=== PATIENT | male | born 1960 | race Caucasian/White ===

== ENCOUNTER 2016-07-06 17:40 | Inpatient (IN) | payer MEDICAID ==
[~2016-07-06] VITALS: Ht 167.6 cm; Wt 62.5 kg
[2016-07-06 17:51] VITALS: BP 103/65; PULSE 92; RESP 16; O2SAT 89
[2016-07-06 17:52] VITALS: TEMP 100.3; O2SAT 94
[2016-07-06] MEDS ORDERED: SODIUM CHLOR 0.9% 1000 ML INJ 100 ML IV ONE (18:32)
[2016-07-06] MEDS ORDERED: PIPERACIL-TAZO 4.5 GM PREMIX 100 ML IV STA (18:32)
[2016-07-06] MEDS ORDERED: SODIUM CHLOR 0.9% 1000 ML INJ 1,000 ML IV ONE ×2 (18:32)
[2016-07-06] MEDS ORDERED: AZITHROMYCIN INJ 500 MG in SODIUM CHLOR 0.9% 250 ML INJ 250 ML IV STA (18:32)
[2016-07-06] MEDS ORDERED: LORA-474 PO (18:37)
[2016-07-06] MEDS ORDERED: SERO100T PO (18:37)
[2016-07-06] MEDS ORDERED: DIVA125C PO ×2 (18:37)
[2016-07-06] MEDS ORDERED: ESCI20TA PO (18:37)
[2016-07-06] MEDS ORDERED: HYDR-3366 PO (18:37)
[2016-07-06] MEDS ORDERED: GABA300C5 PO (18:37)
[2016-07-06] MEDS ORDERED: MULT-135 PO (18:37)
[2016-07-06] MEDS ORDERED: IPRASOL INH (18:37)
[2016-07-06] MEDS ORDERED: PRED10 PO (18:37)
[2016-07-06] MEDS ORDERED: SENN8.6T19 PO (18:37)
[2016-07-06] MEDS ORDERED: LEVE500 PO (18:37)
[2016-07-06] MEDS ORDERED: CLON0.5T PO (18:37)
[2016-07-06] MEDS: RESP: ALBUTEROL 2.5 MG/IPRATROPIUM 0.5 MG NEB (SCH) INH (19:13)
[2016-07-06 19:16] LABS: AUTOMATED NEUTROPHIL # 13.4 TH/MM3 (1.8-7.7); EOSINOPHIL % 0.1 % (0.0-4.0); HEMATOCRIT 35.6 % (39.0-51.0); HEMO FLAGS DIFF FINAL; LYMPH % 13.2 % (9.0-44.0); LYMPHOCYTE # 2.3 TH/MM3 (1.0-4.8); MEAN CELL VOLUME 92.4 FL (80.0-100.0); MEAN CORPUSCULAR HEMOGLOBIN 30.5 PG (27.0-34.0); MONO % 9.4 % (0.0-8.0); NEUT % 77.3 % (16.0-70.0); PLATELET COUNT 144 TH/MM3 (150-450); RED BLOOD COUNT 3.86 MIL/MM3 (4.50-5.90); RED CELL DISTRIBUTION WIDTH 13.9 % (11.6-17.2); WHITE BLOOD COUNT 17.4 TH/MM3 (4.0-11.0)
[2016-07-06 19:23] LABS: APTT (PATIENT) 32.2 SEC (24.3-30.1); PROTHROMBIN TIME - PATIENT 11.3 SEC (9.8-11.6)
[2016-07-06 19:34] LABS: ANION GAP 8 MEQ/L (5-15); AST (GOT) 15 U/L (15-37); BICARBONATE 29.9 MEQ/L (21.0-32.0); BLOOD UREA NITROGEN 16 MG/DL (7-18); CHLORIDE 101 MEQ/L (98-107); GLOMERULAR FILTRATION RATE 73 ML/MIN (>89); POTASSIUM 4.9 MEQ/L (3.5-5.1); SODIUM (NA) 139 MEQ/L (136-145)
[2016-07-06 19:37] LABS: ALKALINE PHOSPHATASE 73 U/L (45-117); ALT (GPT) 19 U/L (12-78); TOTAL BILIRUBIN ADULT 0.4 MG/DL (0.2-1.0)
--- NOTE | 2016-07-06 19:39 | RADRPT ---
EXAM DATE/TIME: 07/06/2016 18:43 [place] COMPARISON: No previous studies available for comparison. INDICATIONS : Fever. MEDICAL HISTORY : Hepatitis C. SURGICAL HISTORY : None. ENCOUNTER: Initial ACUITY: 1 day PAIN SCORE: 0/10 LOCATION: Bilateral chest FINDINGS: The heart size is normal. The lungs demonstrate diffuse increased interstitial markings. There is fur ther increased density in the right perihilar region. Significant effusion is not seen. CONCLUSION: 1. Diffuse increased interstitial markings likely representing underlying edema. 2. Increased density at the right hilar region likely representing some focal consolidation. Baljit De Oliveira MD on July 06, 2016 at 19:30 Board Certified Radiologist. This report was verified electronically.
--- NOTE | 2016-07-06 20:13 | PD ---
HPI Chief Complaint: Respiratory Symptoms Time Seen by Provider: 20:02 Travel History International Travel<30 days: No Contact w/Intl Traveler<30days: No Traveled to known affect area: No History of Present Illness HPI 56-year-old male brought in from nursing facility with decreased level of alertness. X-ray from 211 showed a right lower lobe infiltrate, and this morning the patient woke up requiring 4 L a minute via nasal cannula to maintain O2 sats in the 90%. Breath sounds bilaterally showed coarse rhonchi and 101 temperature. History of sepsis in the past with leukocytosis, hepatitis C, COPD, and has been intubated 5 times in the past. History of aspiration pneumonia. Lane and Zosyn was ordered on June 22 per infectious disease, patient was discharged from [facility] on 17 June. Patient was transferred here for further evaluation and treatment. 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; with hemiplegia and hemiparesis) Hepatitis: Yes (C) Hypertension: Yes Neurologic: Yes (epilepsy) Influenza Vaccination: No (uto) Social History Alcohol Use: No (uto) Tobacco Use: No (uto) Substance Use: No Allergies-Medications (Allergen,Severity, Reaction): Coded Allergies: No Known Allergies (Unverified , 07/06/16) Reported Meds & Prescriptions Reported Meds & Active Scripts Active Reported Keppra (Levetiracetam) 500 Mg Tab 500 Mg PO BID Escitalopram (Escitalopram Oxalate) 20 Mg Tab 20 Mg PO DAILY Seroquel (Quetiapine Fumarate) 100 Mg Tab 100 Mg PO TID Gabapentin 300 Mg Cap 300 Mg PO TID [place] (Hydrocodone-Acetaminophen) 10-325 Mg Tab 1 Tab PO Q6H Ativan (Lorazepam) 1 Mg Tab 1 Mg PO Q6H PRN Senna-S 8.6-50 mg (Sennosides-Docusate Sodium) 1 Tab Tab 1 Tab PO BID Clonazepam 0.5 Mg Tab 0.5 Mg PO BID PRN Multi Vitamin (Multiple Vitamin) 1 Tab Tab 1 Tab PO DAILY Depakote Sprinkles (Divalproex Sodium) 125 mg Cap 3 Tab PO DAILY Depakote Sprinkles (Divalproex Sodium) 125 mg Cap 250 Mg PO BID Duoneb (Ipratropium-Albuterol Neb) 0.5-2.5 Mg/3 Ml Neb 1 Nebule INH Q4HR NEB PRN Prednisone 10 Mg Tab 10 Mg PO DAILY Review of Systems ROS Limitations: Clinical Condition, Altered Mental Status, Poor Historian Except as stated in HPI: all other systems reviewed are Neg General / Constitutional: Positive: Fever Eyes: No: Visual changes HENT: No: Headaches Cardiovascular: No: Chest Pain or Discomfort Respiratory: No: Shortness of Breath Gastrointestinal: No: Abdominal Pain Genitourinary: No: Dysuria Musculoskeletal: No: Pain Skin: No Rash Neurologic: No: Weakness Psychiatric: No: Depression Endocrine: No: Polydipsia Hematologic/Lymphatic: No: Easy Bruising Physical Exam Exam Limitations: Altered Mental Status, Poor Historian Narrative GENERAL: Patient appears in mild to moderate distress. He is somewhat obtunded but will answer questions yes or no. SKIN: Warm and dry. Moderate pallor. Mild poor turgor. HEAD: Atraumatic. Normocephalic. EYES: Pupils equal and round. No scleral icterus. No injection or drainage. ENT: No nasal bleeding or discharge. Mucous membranes pink and dry. Pharynx is clear. NECK: Trachea midline. No JVD. CARDIOVASCULAR: Regular rate and rhythm. No murmurs gallops or rubs appreciated. RESPIRATORY: No accessory muscle use. Patient has generalized rhonchi and rales bilaterally to auscultation. Breath sounds equal bilaterally. GASTROINTESTINAL: Abdomen soft, non-tender, nondistended. Hepatic and splenic margins not palpable. MUSCULOSKELETAL: Extremities without clubbing, cyanosis, or edema. No obvious deformities. NEUROLOGICAL: Awake and alert. No obvious cranial nerve deficits. Motor grossly within normal limits. Five out of 5 muscle strength in the arms and legs. PSYCHIATRIC: Difficult to assess due to the patient's condition. Data Data Last Documented VS Vital Signs Date Time Temp Pulse Resp B/P Pulse Ox O2 Delivery O2 Flow Rate FiO2 07/06/16 17:52 100.3 94 Nasal Cannula 3.5 07/06/16 17:51 92 16 103/65 Orders Electrocardiogram (07/06/16 18:32) Complete Blood Count With Diff (07/06/16 18:32) Comprehensive Metabolic Panel (07/06/16 18:32) Prothrombin Time / Inr (Pt) (07/06/16 18:32) Act Partial Throm Time (Ptt) (07/06/16 18:32) Lactic Acid Sepsis Protocol (07/06/16 18:32) Urinalysis - C+S If Indicated (07/06/16 18:32) Influenzae A/B Antigen (07/06/16 18:32) Blood Culture (07/06/16 18:32) Sputum Culture And Gram Stain (07/06/16 18:32) Chest, Single Ap (07/06/16 18:32) Blood Glucose (07/06/16 18:32) Ecg Monitoring (07/06/16 18:32) Iv Access Insert/Monitor (07/06/16 18:32) Oximetry (07/06/16 18:32) Oxygen Administration (07/06/16 18:32) Piperacil-Tazo 4.5 Gm Premix (Zosyn 4.5 (07/06/16 18:32) Azithromycin Inj (Zithromax Inj) (07/06/16 18:32) Sodium Chlor 0.9% 1000 Ml Inj (Ns 1000 M (07/06/16 18:32) Sodium Chlor 0.9% 1000 Ml Inj (Ns 1000 M (07/06/16 18:32) Sodium Chlor 0.9% 1000 Ml Inj (Ns 1000 M (07/06/16 18:32) Albuterol-Ipratropium Neb (Duoneb Neb) (07/06/16 18:45) B-Type Natriuretic Peptide (07/06/16 19:53) Labs Laboratory Tests Test 07/06/16 07/06/16 18:35 18:43 White Blood Count 17.4 TH/MM3 Red Blood Count 3.86 MIL/MM3 Hemoglobin 11.7 GM/DL Hematocrit 35.6 % Mean Corpuscular Volume 92.4 FL Mean Corpuscular Hemoglobin 30.5 PG Mean Corpuscular Hemoglobin 33.0 % Concent Red Cell Distribution Width 13.9 % Platelet Count 144 TH/MM3 Mean Platelet Volume 7.3 FL Neutrophils (%) (Auto) 77.3 % Lymphocytes (%) (Auto) 13.2 % Monocytes (%) (Auto) 9.4 % Eosinophils (%) (Auto) 0.1 % Basophils (%) (Auto) 0.0 % Neutrophils # (Auto) 13.4 TH/MM3 Lymphocytes # (Auto) 2.3 TH/MM3 Monocytes # (Auto) 1.6 TH/MM3 Eosinophils # (Auto) 0.0 TH/MM3 Basophils # (Auto) 0.0 TH/MM3 CBC Comment DIFF FINAL Differential Comment Sodium Level 139 MEQ/L Potassium Level 4.9 MEQ/L Chloride Level 101 MEQ/L Carbon Dioxide Level 29.9 MEQ/L Anion Gap 8 MEQ/L Blood Urea Nitrogen 16 MG/DL Creatinine 1.05 MG/DL Estimat Glomerular Filtration 73 ML/MIN Rate Random Glucose 203 MG/DL Calcium Level 8.3 MG/DL Total Bilirubin 0.4 MG/DL Aspartate Amino Transf 15 U/L (AST/SGOT) Alanine Aminotransferase 19 U/L (ALT/SGPT) Alkaline Phosphatase 73 U/L Total Protein 7.5 GM/DL Albumin 2.6 GM/DL Prothrombin Time 11.3 SEC Prothromb Time International 1.0 RATIO Ratio Activated Partial 32.2 SEC Thromboplast Time Lactic Acid Level 2.3 mmol/L MDM Medical Decision Making Medical Screen Exam Complete: Yes Emergency Medical Condition: Yes Differential Diagnosis Sepsis. Hypoxemia. Pneumonia. Narrative Course Patient is felt to be ill with early sepsis. Labs ordered including CBC, CMP, lactic acid, blood cultures 2, and urinalysis. Chest x-ray is ordered. Chest x-ray shows right middle and lower lobe infiltrate consistent with aspiration pneumonia per radiologist. IV access is obtained patient is given Zosyn and azithromycin IV per sepsis protocol. Patient is given DuoNeb 3 every 15 minutes, and rapid influenza A+B and sputum culture is ordered if able to obtain. Patient is started on 3 L of normal saline IV. CBC shows leukocytosis of 17.4 with a right shift. CMP is fairly unremarkable with a random glucose of 203, normal BUN/creatinine, and BUN of 2.6. Calcium was slightly low at 8.3. Lactic acid is elevated at 2.3. PT/INR normal. APTT is elevated at 32.2. Urinalysis is still pending. Call was placed to Dr. Khalil, and the patient was discussed and accepted for admission. Sepsis Criteria SIRS Criteria (2 or more): Temp > 100.9 or < 96.8, Heart rate over 90, RR > 20 or PaCO2 < 32, WBC > 83504, < 4000 or > 10% bands Sepsis Criteria (SIRS+source): Infect source susp/known Severe Sepsis (+one): Lactate >2 Criteria Outcome: Meets severe sepsis criteria Diagnosis Primary Impression: Sepsis Qualified Code: A41.9 - Sepsis, due to unspecified organism Additional Impressions: Pneumonia Qualified Code: J18.1 - Pneumonia of lower lobe due to infectious organism, unspecified laterality Hypoxia Admitting Information Admitting Physician Requests: Admit Condition: Stable Cristiano Gonzalez Jul 06, 2016 20:13
--- NOTE | 2016-07-06 20:18 | PD ---
Physical Exam Date Seen by Provider: Jul 06, 2016 Narrative Patient was sent to us from [facility] for probable pneumonia and hypoxia. Data Data Last Documented VS Vital Signs Date Time Temp Pulse Resp B/P Pulse Ox O2 Delivery O2 Flow Rate FiO2 07/06/16 17:52 100.3 94 Nasal Cannula 3.5 07/06/16 17:51 92 16 103/65 Orders Electrocardiogram (07/06/16 18:32) Complete Blood Count With Diff (07/06/16 18:32) Comprehensive Metabolic Panel (07/06/16 18:32) Prothrombin Time / Inr (Pt) (07/06/16 18:32) Act Partial Throm Time (Ptt) (07/06/16 18:32) Lactic Acid Sepsis Protocol (07/06/16 18:32) Urinalysis - C+S If Indicated (07/06/16 18:32) Influenzae A/B Antigen (07/06/16 18:32) Blood Culture (07/06/16 18:32) Sputum Culture And Gram Stain (07/06/16 18:32) Chest, Single Ap (07/06/16 18:32) Blood Glucose (07/06/16 18:32) Ecg Monitoring (07/06/16 18:32) Iv Access Insert/Monitor (07/06/16 18:32) Oximetry (07/06/16 18:32) Oxygen Administration (07/06/16 18:32) Piperacil-Tazo 4.5 Gm Premix (Zosyn 4.5 (07/06/16 18:32) Azithromycin Inj (Zithromax Inj) (07/06/16 18:32) Sodium Chlor 0.9% 1000 Ml Inj (Ns 1000 M (07/06/16 18:32) Sodium Chlor 0.9% 1000 Ml Inj (Ns 1000 M (07/06/16 18:32) Sodium Chlor 0.9% 1000 Ml Inj (Ns 1000 M (07/06/16 18:32) Albuterol-Ipratropium Neb (Duoneb Neb) (07/06/16 18:45) B-Type Natriuretic Peptide (07/06/16 19:53) Labs Laboratory Tests Test 07/06/16 2 18:35 18:43 White Blood Count 17.4 TH/MM3 Red Blood Count 3.86 MIL/MM3 Hemoglobin 11.7 GM/DL Hematocrit 35.6 % Mean Corpuscular Volume 92.4 FL Mean Corpuscular Hemoglobin 30.5 PG Mean Corpuscular Hemoglobin 33.0 % Concent Red Cell Distribution Width 13.9 % Platelet Count 144 TH/MM3 Mean Platelet Volume 7.3 FL Neutrophils (%) (Auto) 77.3 % Lymphocytes (%) (Auto) 13.2 % Monocytes (%) (Auto) 9.4 % Eosinophils (%) (Auto) 0.1 % Basophils (%) (Auto) 0.0 % Neutrophils # (Auto) 13.4 TH/MM3 Lymphocytes # (Auto) 2.3 TH/MM3 Monocytes # (Auto) 1.6 TH/MM3 Eosinophils # (Auto) 0.0 TH/MM3 Basophils # (Auto) 0.0 TH/MM3 CBC Comment DIFF FINAL Differential Comment Sodium Level 139 MEQ/L Potassium Level 4.9 MEQ/L Chloride Level 101 MEQ/L Carbon Dioxide Level 29.9 MEQ/L Anion Gap 8 MEQ/L Blood Urea Nitrogen 16 MG/DL Creatinine 1.05 MG/DL Estimat Glomerular Filtration 73 ML/MIN Rate Random Glucose 203 MG/DL Calcium Level 8.3 MG/DL Total Bilirubin 0.4 MG/DL Aspartate Amino Transf 15 U/L (AST/SGOT) Alanine Aminotransferase 19 U/L (ALT/SGPT) Alkaline Phosphatase 73 U/L Total Protein 7.5 GM/DL Albumin 2.6 GM/DL Prothrombin Time 11.3 SEC Prothromb Time International 1.0 RATIO Ratio Activated Partial 32.2 SEC Thromboplast Time Lactic Acid Level 2.3 mmol/L MDM Supervised Visit with SANJUANA: Yes Narrative Course I, Dr. Crowe, have reviewed the advance practice practitioner's documentation and am in agreement, met with the patient face to face, made the diagnosis, and the medical decision making was done by me. *My assessment and Findings: Sats are 91% on oxygen. Lungs have diffuse rhonchi worse on the right than the left. Sierra Crowe MD Jul 06, 2016 20:18
[2016-07-06] MEDS ORDERED: ACETAMINOPHEN/HYDROcodone 325 MG/5 MG TAB PO PRN (20:30)
[2016-07-06] MEDS ORDERED: BISACODYL 10 MG SUPP PR PRN (20:30)
[2016-07-06] MEDS ORDERED: ONDANSETRON HCL 4 MG/2 ML VIAL IVP PRN (20:30)
[2016-07-06] MEDS ORDERED: DEXTROSE 50% IN WATER 50 ML VIAL(D50) IV PUSH PRN (20:30)
[2016-07-06] MEDS ORDERED: SODIUM CHLORIDE 0.9% FLUSH 5 ML FLUSH FLUSH PRN (20:30)
[2016-07-06] MEDS ORDERED: RESP: ALBUTEROL 2.5 MG/IPRATROPIUM 0.5 MG NEB (PRN) NEB (20:30)
[2016-07-06] MEDS ORDERED: GLUCAGON 1 MG/ML VIAL OTHER PRN (20:30)
[2016-07-06] MEDS ORDERED: Vancomycin Consult Pharmacy 1 EA OTHER SCH (20:30)
[2016-07-06] MEDS ORDERED: ACETAMINOPHEN/HYDROcodone 325 MG/10 MG TAB PO PRN (20:30)
[2016-07-06] MEDS ORDERED: ACETAMINOPHEN 325 MG TAB PO PRN (20:30)
--- NOTE | 2016-07-06 20:32 | HHI.HP ---
[facility] Service [place] [facility] Primary Care Physician Non-Staff Admission Diagnosis Sepsis/Pneumonia/Hypoxia Diagnoses: (1) Sepsis Diagnosis: Principal (2) PNA (pneumonia) Diagnosis: Principal (3) Hypoxia Diagnosis: Principal (4) Seizure disorder Diagnosis: Principal (5) DM (diabetes mellitus) Diagnosis: Principal Travel History International Travel<30 Days: No Contact w/Intl Traveler <30 Da: No Traveled to Known Affected Are: No History of Present Illness This is a 56-year-old male with PMH of Anxiety, COPD, Hepatitis C, Cirrhosis, Seizure Disorder, h/o ICH and CVA w/ Residual Hemiparesis who was sent to the ER from SNF secondary to PNA and Hypoxia. Per records, outpatient X-ray from 04/06 showing RLL infiltrate, today w/ hypoxia O2 sat 90% on RA and temp 101. Pt unable to provide history. On arrival, BP 103/65, HR 92, O2 sat 89% on RA, Temp 100.3. WBC 17.4. Platelets 144, no previous labs for comparison. Chemistry essentially unremarkable. BS 203. Lactic Acid 2.3, repeat 2.3. CXR with diffuse interstitial markings likely representing edema, increased density right hilar region representing focal consolidation. S/p Sputum/Blood Cultures , Zosyn/Zithro in ER. Review of Systems ROS: Unable to obtain secondary to CVA, brain injury Past Family Social History Past Medical History PMH: Anxiety, COPD, Hepatitis C, Cirrhosis, Seizure Disorder, h/o ICH and CVA w / Residual Hemiparesis Past Surgical History PAST SURGICAL HISTORY: None Allergies: Coded Allergies: No Known Allergies (Unverified , 07/06/16) Family History PAST FAMILY HISTORY: Reviewed. No h/o DM or CAD Social History PAST SOCIAL HISTORY: Negative for all,, tobacco or drugs. Physical Exam Vital Signs Vital Signs Date Time Temp Pulse Resp B/P Pulse Ox O2 Delivery O2 Flow Rate FiO2 07/06/16 17:52 100.3 94 Nasal Cannula 3.5 07/06/16 17:51 92 16 103/65 89 Room Air Physical Exam PE: GENERAL: Thin, frail, chronically ill-appearing white male in no acute distress. HEENT: PERRLA, EOMI. No scleral icterus or conjunctival pallor. No lid lag or facial droop. CARDIOVASCULAR: Regular rate and rhythm. No obvious murmurs to auscultation. No chest tenderness to palpation. RESPIRATORY: No obvious rhonchi or wheezing. Clear to auscultation. Breath sounds decreased at bases bilaterally. GASTROINTESTINAL: Abdomen soft, non-tender, nondistended. BS normal. MUSCULOSKELETAL: Extremities without clubbing, cyanosis, or edema. No obvious deformities. NEUROLOGICAL: Awake, alert. Mental status seemingly at baseline. No new focal neurologic deficits. Moving both upper and lower extremities spontaneously. Laboratory Laboratory Tests Test 07/06/16 07/06/16 18:35 18:43 White Blood Count 17.4 Red Blood Count 3.86 Hemoglobin 11.7 Hematocrit 35.6 Mean Corpuscular Volume 92.4 Mean Corpuscular Hemoglobin 30.5 Mean Corpuscular Hemoglobin 33.0 Concent Red Cell Distribution Width 13.9 Platelet Count 144 Mean Platelet Volume 7.3 Neutrophils (%) (Auto) 77.3 Lymphocytes (%) (Auto) 13.2 Monocytes (%) (Auto) 9.4 Eosinophils (%) (Auto) 0.1 Basophils (%) (Auto) 0.0 Neutrophils # (Auto) 13.4 Lymphocytes # (Auto) 2.3 Monocytes # (Auto) 1.6 Eosinophils # (Auto) 0.0 Basophils # (Auto) 0.0 CBC Comment DIFF FINAL Differential Comment Sodium Level 139 Potassium Level 4.9 Chloride Level 101 Carbon Dioxide Level 29.9 Anion Gap 8 Blood Urea Nitrogen 16 Creatinine 1.05 Estimat Glomerular Filtration 73 Rate Random Glucose 203 Calcium Level 8.3 Total Bilirubin 0.4 Aspartate Amino Transf 15 (AST/SGOT) Alanine Aminotransferase 19 (ALT/SGPT) Alkaline Phosphatase 73 Total Protein 7.5 Albumin 2.6 Prothrombin Time 11.3 Prothromb Time International 1.0 Ratio Activated Partial 32.2 Thromboplast Time Lactic Acid Level 2.3 Date/Time Procedure Status Source Growth 07/06/16 18:43 Aerobic Blood Culture Received Blood Peripheral Pending 07/06/16 18:43 Anaerobic Blood Culture Received Blood Peripheral Pending 07/06/16 18:40 Influenza Types A,B Antigen (HIRAM) - Final Complete Nasal Washing NEGATIVE FOR FLU A AND B ANTIGEN.... Result Diagram: 07/06/16183407/06/161834 Assessment and Plan Problem List: (1) Sepsis ICD Code: A41.9 Status: Acute (2) PNA (pneumonia) ICD Code: J18.9 Status: Acute (3) Hypoxia ICD Code: R09.02 Status: Acute (4) Seizure disorder ICD Code: G40.909 Status: Acute (5) DM (diabetes mellitus) ICD Code: E11.9 Status: Acute Assessment and Plan A/P: 1. Sepsis: Temp 100.3, HR 92, WBC 17.4, Lactic Acid 2.3. S/p Blood/Sputum Cultures, IV Zithro/Zosyn. Follow up cultures, continue w/ IV Vanc/Zosyn. IVF for hydration, repeat Lactic Acid. 2. PNA: CXR w/ diffuse increased interstitial markings likely representing edema and increased density right hilar region representing focal consolidation , images reviewed by me. Continue with treatment as above. DuoNeb prn, Mucinx 3. Hypoxia: Not on Home O2, O2 sat 89% on RA, currently 94% on 3L NC, continue w/ O2 as needed. 4. Seizure Disorder: Stable. H/o ICH and CVA w/ residual hemiparesis, unchanged. Resume home medications. 5. DM: Sliding scale w/ Accu-Cheks. 6. DVT Prophylaxis: SCD/Teds, no anticoagulation w/ h/o ICH 7. Social work for d/c planning as needed. 8. Case discussed w/ ER physician at length. Physician Certification 2 Midnight Certification Type: Admission for Inpatient Services Order for Inpatient Services The services are ordered in accordance with Medicare regulations or non- Medicare payer requirements, as applicable. In the case of services not specified as inpatient-only, they are appropriately provided as inpatient services in accordance with the 2-midnight benchmark. Estimated LOS (days): 2 days is the estimated time the patient will need to remain in the hospital, assuming treatment plan goals are met and no additional complications. Post-Hospital Plan: Not yet determined Problem Qualifiers (1) Sepsis: Qualified Code: A41.9 - Sepsis, due to unspecified organism Ciarra Grey MD Jul 06, 2016 20:32
[2016-07-06 20:56] LABS: LACTIC ACID GHOST NOT REPORTABLE
[2016-07-06 21:00] VITALS: BP 119/82; PULSE 90; RESP 20; O2SAT 94
[2016-07-06] MEDS: SODIUM CHLORIDE 0.9% FLUSH 5 ML FLUSH FLUSH SCH (21:00)
[2016-07-06 22:19] VITALS: O2SAT 95
[2016-07-06] MEDS: levETIRAcetam 500 MG TAB PO SCH (22:52)
[2016-07-06] MEDS: guaiFENesin E.R. 600 MG TAB PO SCH (22:52)
[2016-07-06] MEDS: DOCUSATE SODIUM 50 MG/SENNA 8.6 MG TAB PO SCH (22:53)
[2016-07-06] MEDS: SODIUM CHLOR 0.9% 1000 ML INJ 1,000 ML IV SCH (22:54)
[2016-07-06] MEDS: INSULIN ASPART SUPPLEMENTAL SCALE SQ SCH (22:59)
[2016-07-06 23:07] VITALS: BP 119/72; PULSE 90; RESP 20; O2SAT 96
[2016-07-06] MEDS: DIVALPROEX SODIUM SPRINKLES 125 MG CAP PO SCH (23:21)
[2016-07-06] MEDS: VANCOMYCIN INJ 1,700 MG in SODIUM CHLORID 0.9% 500 ML INJ 500 ML IV SCH (23:49)
[2016-07-07] VITALS (9 sets, daily range): BP systolic 135–186; BP diastolic 80–97; PULSE 70–93; RESP 16–25; TEMP 97.7–98.5; O2SAT 93–100
[2016-07-07 00:01] LABS: BLOOD, URINE NEG (NEG); COMMENT (UR) CULT NOT INDICATED; CULTURE IF INDICATED CULT NOT INDICATED; GLUCOSE,URINE NEG (NEG); HYALINE CAST, URINE 15 /lpf (RARE); KETONE, URINE NEG (NEG); NITRITE,URINE NEG (NEG); PH, URINE 6.5 (5.0-8.5); URINE COLOR YELLOW (YELLW/STRAW)
[2016-07-07] MEDS: PIPERACIL-TAZO 3.375 GM PREMIX 50 ML IV SCH ×4 (03:04→22:03)
[2016-07-07 05:32] LABS: ALT (GPT) 17 U/L (12-78); ANION GAP 6 MEQ/L (5-15); AST (GOT) 13 U/L (15-37); BICARBONATE 27.2 MEQ/L (21.0-32.0); CHLORIDE 109 MEQ/L (98-107); GLOMERULAR FILTRATION RATE 122 ML/MIN (>89); POTASSIUM 4.6 MEQ/L (3.5-5.1); SODIUM (NA) 142 MEQ/L (136-145)
[2016-07-07 05:34] LABS: ALKALINE PHOSPHATASE 58 U/L (45-117); BLOOD UREA NITROGEN 13 MG/DL (7-18); TOTAL BILIRUBIN ADULT 0.5 MG/DL (0.2-1.0)
[2016-07-07 05:45] LABS: AUTOMATED NEUTROPHIL # 6.6 TH/MM3 (1.8-7.7); BASOPHIL % 0.2 % (0.0-2.0); EOSINOPHIL % 0.3 % (0.0-4.0); LYMPH % 26.8 % (9.0-44.0); MEAN CELL VOLUME 91.7 FL (80.0-100.0); MEAN CORPUSCULAR HEMOGLOBIN 30.8 PG (27.0-34.0); MEAN CORPUSCULAR HGB CONC 33.6 % (32.0-36.0); MONO % 13.1 % (0.0-8.0); NEUT % 59.6 % (16.0-70.0); PLATELET COUNT 99 TH/MM3 (150-450); RED BLOOD COUNT 3.82 MIL/MM3 (4.50-5.90); RED CELL DISTRIBUTION WIDTH 14.1 % (11.6-17.2); WHITE BLOOD COUNT 11.1 TH/MM3 (4.0-11.0)
[2016-07-07 05:47] LABS: HEMO FLAGS AUTO DIFF
[2016-07-07] MEDS: INSULIN ASPART SUPPLEMENTAL SCALE SQ SCH ×4 (07:00→21:00)
[2016-07-07 08:37] LABS: PLATELET ESTIMATE SMEAR LOW (NORMAL); PLATELET MORPHOLOGY NORMAL (NORMAL); SCAN/DIFF AUTO DIFF CONFIRMED
[2016-07-07] MEDS: guaiFENesin E.R. 600 MG TAB PO SCH ×2 (08:48→21:57)
[2016-07-07] MEDS: GABAPENTIN 300 MG CAP PO SCH ×3 (08:48→17:22)
[2016-07-07] MEDS: ESCITALOPRAM OXALATE 20 MG TAB PO SCH (08:48)
[2016-07-07] MEDS: DIVALPROEX SODIUM SPRINKLES 125 MG CAP PO SCH ×2 (08:48→22:04)
[2016-07-07] MEDS: QUEtiapine FUMARATE 100 MG TAB PO SCH ×3 (08:48→17:22)
[2016-07-07] MEDS: levETIRAcetam 500 MG TAB PO SCH ×2 (08:48→21:57)
[2016-07-07] MEDS: MULTIVITAMIN TAB PO SCH (08:48)
[2016-07-07] MEDS: DOCUSATE SODIUM 50 MG/SENNA 8.6 MG TAB PO SCH ×2 (08:48→21:57)
[2016-07-07] MEDS: SODIUM CHLORIDE 0.9% FLUSH 5 ML FLUSH FLUSH SCH ×2 (09:00→21:00)
[2016-07-07] MEDS: SODIUM CHLOR 0.9% 1000 ML INJ 1,000 ML IV SCH ×2 (11:01→16:30)
[2016-07-07] MEDS: VANCOMYCIN INJ 1,700 MG in SODIUM CHLORID 0.9% 500 ML INJ 500 ML IV SCH ×2 (11:01→22:05)
[2016-07-07] MEDS: clonazePAM 0.5 MG TAB PO PRN (11:40)
--- NOTE | 2016-07-07 16:30 | HHI.PR ---
Subjective Remarks patient baseline, not ff commands stated his name and answered some questions childlike Objective Vitals Vital Signs Date Time Temp Pulse Resp B/P Pulse Ox O2 Delivery O2 Flow Rate FiO2 07/07/16 13:00 70 158/97 97 Nasal Cannula 4 07/07/16 12:30 96 4 07/07/16 12:25 98.5 93 25 166/83 96 Nasal Cannula 4 07/07/16 11:12 89 18 135/81 99 Nasal Cannula 4 07/07/16 08:00 87 18 143/83 95 Nasal Cannula 3 07/07/16 06:45 76 16 141/80 100 Simple Mask 7 07/07/16 03:00 71 20 140/87 98 Venturi Mask 6 07/06/16 23:07 95 Venturi Mask 40 07/06/16 23:07 90 20 119/72 96 Venturi Mask 6 40 07/06/16 22:20 95 Venturi Mask 6 50 07/06/16 22:19 95 Venturi Mask 6.00 50 07/06/16 21:00 90 20 119/82 94 07/06/16 17:52 100.3 94 Nasal Cannula 3.5 07/06/16 17:51 92 16 103/65 89 Room Air I/O 07/06/16 07/06/16 07/06/16 07/07/16 07/07/16 07/07/16 07:00 15:00 23:00 07:00 15:00 23:00 Output Total 250 ml Balance -250 ml Output Urine Total 250 ml # Voids 1 # Bowel Movements 1 Result Diagram: 07/07/16 0453 07/07/16 0453 Imaging Last Impressions Chest X-Ray 07/06/16 1832 Signed Impressions: Service Date/Time: June 18:43 - CONCLUSION: 1. Diffuse increased interstitial markings likely representing underlying edema. 2. Increased density at the right hilar region likely representing some focal consolidation. Baljit De Oliveira MD Objective Remarks awake and aelrt, oriented to person, childlike no nuchal rigidity lungs no rales regular rhythm abdmen soft, nontender extremities moves all spontaenously, no purposeful movement A/P Problem List: (1) Sepsis ICD Code: A41.9 Status: Acute (2) PNA (pneumonia) ICD Code: J18.9 Status: Acute (3) Hypoxia ICD Code: R09.02 Status: Acute (4) Seizure disorder ICD Code: G40.909 Status: Acute (5) DM (diabetes mellitus) ICD Code: E11.9 Status: Acute Assessment and Plan 1. Sepsis: Temp 100.3, HR 92, WBC 17.4, Lactic Acid 2.3. S/p Blood/Sputum Cultures, IV Zithro/Zosyn. Follow up cultures, continue w/ IV Vanc/Zosyn. IVF for hydration, repeat Lactic Acid. - normal 2. PNA: CXR w/ diffuse increased interstitial markings likely representing edema and increased density right hilar region representing focal consolidation , images reviewed by me. Continue with treatment as above. DuoNeb prn, Mucinx 3. Hypoxia: Not on Home O2, O2 sat 89% on RA, currently 94% on 3L NC, continue w/ O2 as needed. 4. S/P CVA history with encephalopathy Seizure Disorder: Stable. H/o ICH and CVA w/ residual hemiparesis, unchanged. Resume home medications. get speech for swallowing and cognitive evaluation. PT consult 5. DM: Sliding scale w/ Accu-Cheks. 6. DVT Prophylaxis: SCD/Teds, no anticoagulation w/ h/o ICH 7. Social work for d/c planning as needed. 8. Case discussed w/ ER physician at length. speech therapy consult for swallowing eval Problem Qualifiers (1) Sepsis: Qualified Code: A41.9 - Sepsis, due to unspecified organism Jess Austin MD Jul 07, 2016 16:30
--- NOTE | 2016-07-07 16:43 | EKG ---
Date Performed: 07/06/2016 Time Performed: 20:26:02 PTAGE: 56 years EKG: Sinus rhythm NORMAL ECG NO PREVIOUS TRACING DOCTOR: Larry Hatch Interpretating Date/Time 07/07/2016 16:41:39
[2016-07-08] VITALS (8 sets, daily range): BP systolic 107–175; BP diastolic 71–98; PULSE 69–89; RESP 16–20; TEMP 97.6–98.7; O2SAT 90–95
[2016-07-08] MEDS: SODIUM CHLOR 0.9% 1000 ML INJ 1,000 ML IV SCH (03:50)
[2016-07-08] MEDS: PIPERACIL-TAZO 3.375 GM PREMIX 50 ML IV SCH ×4 (03:50→21:18)
[2016-07-08] MEDS: INSULIN ASPART SUPPLEMENTAL SCALE SQ SCH ×4 (06:23→21:00)
[2016-07-08] MEDS: QUEtiapine FUMARATE 100 MG TAB PO SCH ×3 (08:08→16:35)
[2016-07-08] MEDS: guaiFENesin E.R. 600 MG TAB PO SCH ×2 (08:09→22:18)
[2016-07-08] MEDS: levETIRAcetam 500 MG TAB PO SCH ×2 (08:09→22:18)
[2016-07-08] MEDS: MULTIVITAMIN TAB PO SCH (08:09)
[2016-07-08] MEDS: GABAPENTIN 300 MG CAP PO SCH ×3 (08:09→16:35)
[2016-07-08] MEDS: ESCITALOPRAM OXALATE 20 MG TAB PO SCH (08:09)
[2016-07-08] MEDS: DOCUSATE SODIUM 50 MG/SENNA 8.6 MG TAB PO SCH ×2 (08:09→21:00)
[2016-07-08] MEDS: DIVALPROEX SODIUM SPRINKLES 125 MG CAP PO SCH ×2 (08:11→22:18)
[2016-07-08] MEDS: SODIUM CHLORIDE 0.9% FLUSH 5 ML FLUSH FLUSH SCH ×2 (09:00→21:18)
[2016-07-08] MEDS ORDERED: PHARMACY ORDERED LAB XX ONE (09:45)
--- NOTE | 2016-07-08 10:39 | HHI.PR ---
Subjective Remarks awake and alert, oriented to person ff all commands "I'm tied up, can you take these off" he is pleasant denies any pain Objective Vitals Vital Signs Date Time Temp Pulse Resp B/P Pulse Ox O2 Delivery O2 Flow Rate FiO2 07/08/16 08:00 98.6 70 18 175/98 90 07/08/16 04:00 98.0 86 16 116/77 92 07/08/16 00:00 98.5 81 18 144/88 95 07/07/16 22:05 86 07/07/16 20:00 98.5 76 17 139/84 93 07/07/16 15:00 97.7 82 20 186/82 95 07/07/16 13:00 70 158/97 97 Nasal Cannula 4 07/07/16 12:30 96 4 07/07/16 12:25 98.5 93 25 166/83 96 Nasal Cannula 4 07/07/16 11:12 89 18 135/81 99 Nasal Cannula 4 I/O 07/07/16 07/07/16 07/07/16 07/08/16 07/08/16 07/08/16 07:00 15:00 23:00 07:00 15:00 23:00 Intake Total 260 ml 120 ml 1474 ml Output Total 250 ml 400 ml Balance -250 ml 260 ml -280 ml 1474 ml Intake Oral 60 ml 120 ml IV Total 200 ml 1474 ml Output Urine Total 250 ml 400 ml # Voids 1 2 # Bowel Movements 1 Result Diagram: 07/07/16 0453 07/07/16 0453 Imaging Last Impressions Chest X-Ray 07/06/16 1832 Signed Impressions: Service Date/Time: June 18:43 - CONCLUSION: 1. Diffuse increased interstitial markings likely representing underlying edema. 2. Increased density at the right hilar region likely representing some focal consolidation. Baljit De Oliveira MD Objective Remarks awake and alert, oriented to person, speech soft no nuchal rigidity lungs no rales regular rhythm abdomen soft, nontender condom catheter in place extremities moves all spontaneously no purposeful movement A/P Problem List: (1) Sepsis ICD Code: A41.9 Status: Acute (2) PNA (pneumonia) ICD Code: J18.9 Status: Acute (3) Hypoxia ICD Code: R09.02 Status: Acute (4) Seizure disorder ICD Code: G40.909 Status: Acute (5) DM (diabetes mellitus) ICD Code: E11.9 Status: Acute Assessment and Plan 56 years old male [facility] Sepsis: Temp 100.3, HR 92, WBC 17.4, Lactic Acid 2.3. S/p Blood/Sputum Cultures, IV Zithro/Zosyn. Follow up cultures, continue w/ IV Vanc/Zosyn. IVF for hydration, repeat Lactic Acid. - normal. T down. WBC down PNA: CXR w/ diffuse increased interstitial markings likely representing edema and increased density right hilar region representing focal consolidation, Hypoxia: Not on Home O2, O2 sat 89% on RA, currently 94% on 3L NC, continue w/ O2 as needed. Hypertension- some elevated readings give Lasix 20 mg IV x 1. KCL x 1 DC IVF S/P CVA history with encephalopathy Seizure Disorder: Stable. H/o ICH and CVA w/ residual hemiparesis, unchanged. Resume home medications. get speech for swallowing and cognitive evaluation. PT consult DM: Sliding scale w/ Accu-Cheks. DVT Prophylaxis: SCD/Teds, no anticoagulation w/ h/o ICH ? Vascular dementia- Acute agitation- on multiple meds with underlying CVA on multiple meds- Lexapro, Seroquel psychiatry consult for recommendations Felicia SKY prn for agitation speech therapy consult for swallowing eval Problem Qualifiers (1) Sepsis: Qualified Code: A41.9 - Sepsis, due to unspecified organism Jess Austin MD Jul 08, 2016 10:39
[2016-07-08] MEDS ORDERED: POTASSIUM CHLORIDE 20 MEQ CONTROLLED RELEASE TAB PO ONE (10:45)
[2016-07-08] MEDS ORDERED: FUROSEMIDE 20 MG/2 ML VIAL IV PUSH ONE (10:45)
[2016-07-08] MEDS ORDERED: FUROSEMIDE 20 MG/2 ML VIAL IV PUSH SCH (10:45)
[2016-07-08] MEDS ORDERED: POTASSIUM CHLORIDE 20 MEQ CONTROLLED RELEASE TAB PO SCH (10:45)
[2016-07-08] MEDS: VANCOMYCIN INJ 1,700 MG in SODIUM CHLORID 0.9% 500 ML INJ 500 ML IV SCH (12:22)
[2016-07-08] MEDS: ZIPRASIDONE MESYLATE 20 MG VIAL IM PRN (17:44)
[2016-07-08] MEDS: clonazePAM 0.5 MG TAB PO PRN (22:18)
[2016-07-09] VITALS (7 sets, daily range): BP systolic 105–161; BP diastolic 60–91; PULSE 70–82; RESP 16–18; TEMP 97.8–99.4; O2SAT 92–96
[2016-07-09] MEDS: PIPERACIL-TAZO 3.375 GM PREMIX 50 ML IV SCH ×4 (02:25→21:02)
[2016-07-09] MEDS: INSULIN ASPART SUPPLEMENTAL SCALE SQ SCH ×4 (06:07→21:00)
[2016-07-09] MEDS: DIVALPROEX SODIUM SPRINKLES 125 MG CAP PO SCH ×2 (08:37→21:02)
[2016-07-09] MEDS: ESCITALOPRAM OXALATE 20 MG TAB PO SCH (08:37)
[2016-07-09] MEDS: QUEtiapine FUMARATE 100 MG TAB PO SCH ×3 (08:37→16:26)
[2016-07-09] MEDS: MULTIVITAMIN TAB PO SCH (08:37)
[2016-07-09] MEDS: levETIRAcetam 500 MG TAB PO SCH ×2 (08:37→21:02)
[2016-07-09] MEDS: GABAPENTIN 300 MG CAP PO SCH ×3 (08:37→16:26)
[2016-07-09] MEDS: guaiFENesin E.R. 600 MG TAB PO SCH ×2 (08:37→21:02)
[2016-07-09] MEDS: SODIUM CHLORIDE 0.9% FLUSH 5 ML FLUSH FLUSH SCH ×2 (08:39→21:03)
[2016-07-09] MEDS: DOCUSATE SODIUM 50 MG/SENNA 8.6 MG TAB PO SCH ×2 (08:51→21:01)
[2016-07-09] MEDS: ZIPRASIDONE MESYLATE 20 MG VIAL IM PRN (10:10)
--- NOTE | 2016-07-09 10:38 | PD.CONS ---
Provisional Diagnosis Admission Date Jul 06, 2016 at 20:27 [place]. Dementia F03.90 delirium 05 History of Present Illness Service Psychiatry Consult Requested By Attending James Reason for Consult Assessment Primary Care Physician Non-Staff HPI Patient is a 56-year-old white male admitted for sepsis hypoxia other various medical issues including up possible dementia. SC because of some behavioral issues. Patient seen in his room with floor staff, in soft restraints patient appears stated age he is calm pleasant with me though diffusely confused as to person place time and situation though he does know his birthday. He is unable to answer questions related to past psychiatric history there is on no significant psychotropic medications for perhaps also a seizure disorder including Depakote and Seroquel and Lexapro. Does denies suicidality homicidality voices or visions. For now I will continue medications no change continue observation of patient acid medical/metabolic issues resolve to further assess. Patient counseled in the I will follow or Dr. Vu will follow Review of Systems ROS Limitations: Altered Mental Status Except as stated in HPI: all other systems reviewed are Neg Past Family Social History Coded Allergies: No Known Allergies (Unverified , 07/06/16) Past Medical History Unknown at this time Reported Medications Levetiracetam (Keppra)500 Mg [id number] Mg PO BID #0 TAB Ref 0 07/06/16 Escitalopram 20 Mg Tab20 Mg PO DAILY #30 TAB Ref 0 07/06/16 Quetiapine (Seroquel)100 Mg [id number] Mg PO TID #30 TAB Ref 0 07/06/16 Gabapentin 300 Mg [id number] Mg PO TID #0 CAP Ref 0 07/06/16 Hydrocodone-Acetaminophen (Biggs)10-325 Mg Tab1 Tab PO Q6H Ref 0 07/06/16 Lorazepam (Ativan)1 Mg Tab1 Mg PO Q6H PRN (ANXIETY AND/OR AGITATION) Ref 0 07/06/16 Sennosides-Docusate Sodium (Senna-S 8.6-50 mg)1 Tab Tab1 Tab PO BID 07/06/16 Clonazepam 0.5 Mg Tab0.5 Mg PO BID PRN (ANXIETY) #60 TAB Ref 0 07/06/16 Multiple Vitamin (Multi Vitamin)1 Tab Tab1 Tab PO DAILY 07/06/16 Divalproex Sprinkles (Depakote Sprinkles)125 mg Cap3 Tab PO DAILY #60 CAP Ref 0 07/06/16 Divalproex Sprinkles (Depakote Sprinkles)125 mg [id number] Mg PO BID #60 CAP Ref 0 07/06/16 Ipratropium-Albuterol Neb (Duoneb)0.5-2.5 Mg/3 Ml Neb1 Nebule INH Q4HR NEB PRN ( SOB/WHEEZING) #120 NEBULE Ref 0 07/06/16 Prednisone 10 Mg Tab10 Mg PO DAILY Ref 0 07/06/16 Current Medications Medications (Trade) Dose Ordered Sig/Melanie Route Start Time Stop Time Status Last Admin (D50w (Vial) Inj) 25 ml UNSCH PRN IV PUSH 07/06/16 20:30 Glucagon 1 mg 1 mg UNSCH PRN OTHER 07/06/16 20:30 Pharmacy Profile Note 0 ml @ 0 mls/hr UNSCH OTHER 07/06/16 20:30 (Zosyn 3.375 Gm Premix) 50 ml @ 100 mls/hr Q6H IV 07/07/16 03:00 07/09/16 08:38 (Mucinex Er) 600 mg BID PO 07/06/16 21:00 07/09/16 08:37 (NS Flush) 2 ml UNSCH PRN FLUSH 07/06/16 20:30 07/08/16 12:24 (NS Flush) 2 ml BID FLUSH 07/06/16 21:00 07/09/16 08:39 (Zofran Inj) 4 mg Q6H PRN IVP 07/06/16 20:30 (Dulcolax Supp) 10 mg DAILY PRN [place] 07/06/16 20:30 (Tylenol) 650 mg Q6H PRN PO 07/06/16 20:30 (Biggs 5-325 Mg) 1 tab Q4H PRN PO 07/06/16 20:30 07/09/16 06:43 ([place]gs 10-325 Mg) 1 tab Q4H PRN PO 07/06/16 20:30 (KlonoPIN) 0.5 mg BID PRN PO 07/06/16 20:30 07/08/16 22:18 (Depakote Sprinkles) 250 mg BID PO 07/06/16 21:00 07/09/16 08:37 (Lexapro) 20 mg DAILY PO 07/07/16 09:00 07/09/16 08:37 (Neurontin) 300 mg TID PO 07/07/16 09:00 07/09/16 08:37 (Keppra) 500 mg BID PO 07/06/16 21:00 07/09/16 08:37 (Theragran) 1 tab DAILY PO 07/07/16 09:00 07/09/16 08:37 (SEROquel) 100 mg TID PO 07/07/16 09:00 07/09/16 08:37 Senna/Docusate Sodium 1 tab 1 tab BID PO 07/06/16 21:00 07/08/16 08:09 (Vancomycin Inj/ NS 500 ml Inj) 517 ml @ 250 mls/hr Q12H IV 07/06/16 22:00 Hold 07/08/16 12:22 (Geodon Inj) 10 mg Q12H PRN IM 07/08/16 17:30 07/09/16 10:10 Family History Unknown at this time Social History Patient lives in a [facility] Patient's Strengths (min. 2) Patient able [facility] patient appears cooperative Physical Exam [facility] assessment Vital Signs Vital Signs Date Time Temp Pulse Resp B/P Pulse Ox O2 Delivery O2 Flow Rate FiO2 07/09/16 08:00 98.7 76 18 105/60 93 07/08/16 09:30 Nasal Cannula 2.00 07/06/16 23:07 40 I/O 07/08/16 07/08/16 07/09/16 08:00 16:00 00:00 Intake Total 1594 ml 720 ml 175 ml Output Total 400 ml 3050 ml Balance 1194 ml -2330 ml 175 ml Mental Status Examination Allergic diffusely disorganized all 4 spheres white male his bed with soft restraints Appearance Fairly clean and neat Speech: Hesitant, Other (markedly disorganized) Orientation: Person (vaguely) Memory: Impaired (describe) Thought Process: Loose Association Thought Content: Other (disorganized) Hallucination Type: None Attention and Concentration: Other (poor) Suicidal Ideation: No Previous Suicide Attempts: No Homicidal Ideation: No Previous Homicide Attempts: No Insight: Poor Judgement: Poor Affect: Other (decreased range intensity) Mood: Other (restricted) Motor Activity: Normal gait (patient in bed in restraints) Assessment & Plan Problem List: (1) Delirium due to another medical condition ICD Code: F05 (2) Dementia ICD Code: F03.90 Assessment & Plan Estimated LOS: days. For now would recommend continuation of psychotropic medications continue observation as his delirium resolves. Patient is not a candidate for [facility] would recommend return to his [place] [facility] facility once he is medically cleared and stable Discharge Planning See above Baljit Arcos MD Jul 09, 2016 10:37
--- NOTE | 2016-07-09 11:31 | HHI.PR ---
Subjective Remarks no complains, oriented to person, ff commands minimal cough - when asked what he wants for lunch "what you got" Objective Vitals Vital Signs Date Time Temp Pulse Resp B/P Pulse Ox O2 Delivery O2 Flow Rate FiO2 07/09/16 08:00 98.7 76 18 105/60 93 07/09/16 04:00 99.1 74 18 149/76 94 07/09/16 00:00 97.9 73 16 161/88 96 07/08/16 20:15 70 07/08/16 20:00 98.6 69 18 91 07/08/16 16:00 98.7 89 20 107/71 90 07/08/16 12:00 97.6 87 18 127/79 91 I/O 07/08/16 07/08/16 07/08/16 07/09/16 07/09/16 07/09/16 07:00 15:00 23:00 07:00 15:00 23:00 Intake Total 120 ml 2194 ml 175 ml 69 ml Output Total 400 ml 3050 ml 400 ml Balance -280 ml -856 ml 175 ml -331 ml Intake Oral 120 ml 720 ml 120 ml IV Total 1474 ml 55 ml 69 ml Output Urine Total 400 ml 3050 ml 400 ml # Voids 3 # Bowel Movements 3 0 0 Result Diagram: 07/07/163 07/07/163 Imaging Last Impressions Chest X-Ray 07/06/161831 Signed Impressions: Service Date/Time: June 18:43 - CONCLUSION: 1. Diffuse increased interstitial markings likely representing underlying edema. 2. Increased density at the right hilar region likely representing some focal consolidation. Baljit De Oliveira MD Objective Remarks awake and alert, oriented to person, speech soft, pleasantly confused no nuchal rigidity lungs no rales regular rhythm abdomen soft, nontender condom catheter in place extremities moves all spontaneously no purposeful movement A/P Problem List: (1) Sepsis ICD Code: A41.9 Status: Acute (2) PNA (pneumonia) ICD Code: J18.9 Status: Acute (3) Hypoxia ICD Code: R09.02 Status: Acute (4) Seizure disorder ICD Code: G40.909 Status: Acute (5) DM (diabetes mellitus) ICD Code: E11.9 Status: Acute Assessment and Plan 56 years old male from a nearby care home Sepsis: Temp 100.3, HR 92, WBC 17.4, Lactic Acid 2.3. S/p Blood/Sputum Cultures, IV Zithro/Zosyn. Follow up cultures, PNA: CXR w/ diffuse increased interstitial markings likely representing edema and increased density right hilar region representing focal consolidation, continue Zosyn. WBC down change to po antibiotics in am Hypoxia: Not on Home O2, O2 sat 89% on RA, currently 94% on 3L NC, continue w/ O2 as needed. Hypertension- better readings S/P CVA history with encephalopathy Seizure Disorder: Stable. H/o ICH and CVA w/ residual hemiparesis, unchanged. Resume home medications. speech therapy or swallowing and cognitive evaluation. PT consult DM: Sliding scale w/ Accu-Cheks. DVT Prophylaxis: SCD/Teds, no anticoagulation w/ h/o ICH ? Vascular dementia- Acute agitation- on multiple meds with underlying CVA on multiple meds- Lexapro Seroquel psychiatry consult for recommendations Felicia SKY prn for agitation Problem Qualifiers (1) Sepsis: Qualified Code: A41.9 - Sepsis, due to unspecified organism Jess Austin MD Jul 09, 2016 11:31 Jess Austin MD Jul 09, 2016 11:31
[2016-07-09] MEDS ORDERED: VANCOMYCIN INJ 1,700 MG in SODIUM CHLORID 0.9% 500 ML INJ 500 ML IV ONE (12:00)
[2016-07-09] MEDS: clonazePAM 0.5 MG TAB PO PRN (23:32)
[2016-07-10] VITALS: BP 133/78; PULSE 100; RESP 18; TEMP 100.8; O2SAT 91
[2016-07-10] MEDS: ZIPRASIDONE MESYLATE 20 MG VIAL IM PRN ×2 (02:27→14:10)
[2016-07-10] MEDS: PIPERACIL-TAZO 3.375 GM PREMIX 50 ML IV SCH ×3 (03:59→14:15)
[2016-07-10] MEDS: INSULIN ASPART SUPPLEMENTAL SCALE SQ SCH ×4 (06:01→23:35)
[2016-07-10 07:56] VITALS: PULSE 79
[2016-07-10 09:03] LABS: BICARBONATE 27.6 MEQ/L (21.0-32.0)
[2016-07-10 09:05] LABS: POTASSIUM 4.4 MEQ/L (3.5-5.1)
[2016-07-10] MEDS: levETIRAcetam 500 MG TAB PO SCH ×2 (09:17→23:35)
[2016-07-10] MEDS: ESCITALOPRAM OXALATE 20 MG TAB PO SCH (09:18)
[2016-07-10] MEDS: DIVALPROEX SODIUM SPRINKLES 125 MG CAP PO SCH ×2 (09:18→23:34)
[2016-07-10] MEDS: QUEtiapine FUMARATE 100 MG TAB PO SCH ×3 (09:18→17:29)
[2016-07-10] MEDS: SODIUM CHLORIDE 0.9% FLUSH 5 ML FLUSH FLUSH SCH ×2 (09:18→23:34)
[2016-07-10] MEDS: DOCUSATE SODIUM 50 MG/SENNA 8.6 MG TAB PO SCH ×2 (09:18→23:35)
[2016-07-10] MEDS: GABAPENTIN 300 MG CAP PO SCH ×3 (09:18→17:29)
[2016-07-10] MEDS: MULTIVITAMIN TAB PO SCH (09:18)
[2016-07-10] MEDS: guaiFENesin E.R. 600 MG TAB PO SCH ×2 (09:18→23:35)
[2016-07-10 16:00] VITALS: BP 150/85; PULSE 70; RESP 20; TEMP 98.5; O2SAT 91
--- NOTE | 2016-07-10 16:26 | HHI.PR ---
Subjective Remarks patient doing very well awake and alert, pleasantly confused, ff commands Objective Vitals Vital Signs Date Time Temp Pulse Resp B/P Pulse Ox O2 Delivery O2 Flow Rate FiO2 07/10/16 07:56 79 07/10/16 00:00 100.8 100 18 133/78 91 07/09/16 22:02 18 07/09/16 20:10 75 07/09/16 20:00 99.4 82 18 154/91 93 I/O 07/09/16 07/09/16 07/09/16 07/10/16 07/10/16 07/10/16 07:00 15:00 23:00 07:00 15:00 23:00 Intake Total 69 ml 720 ml 240 ml 200 ml Output Total 400 ml 600 ml 400 ml 450 ml Balance -331 ml 120 ml -160 ml -250 ml Intake Oral 720 ml 240 ml 200 ml IV Total 69 ml Output Urine Total 400 ml 600 ml 400 ml 450 ml # Bowel Movements 0 0 Result Diagram: 07/07/16 0453 07/10/16 0811 Imaging Last Impressions Chest X-Ray 07/06/16 1832 Signed Impressions: Service Date/Time: June 18:43 - CONCLUSION: 1. Diffuse increased interstitial markings likely representing underlying edema. 2. Increased density at the right hilar region likely representing some focal consolidation. Baljit De Oliveira MD Objective Remarks awake and alert, oriented to person, speech soft, pleasantly confused no nuchal rigidity lungs no rales regular rhythm abdomen soft, nontender condom catheter in place extremities moves all spontaneously no purposeful movement A/P Problem List: (1) Sepsis ICD Code: A41.9 Status: Acute (2) PNA (pneumonia) ICD Code: J18.9 Status: Acute (3) Hypoxia ICD Code: R09.02 Status: Acute (4) Seizure disorder ICD Code: G40.909 Status: Acute (5) DM (diabetes mellitus) ICD Code: E11.9 Status: Acute Assessment and Plan 56 years old male from a nearby group home Sepsis: Temp 100.3, HR 92, WBC 17.4, Lactic Acid 2.3. S/p Blood/Sputum Cultures, IV Zithro/Zosyn. Follow up cultures, PNA: CXR w/ diffuse increased interstitial markings likely representing edema and increased density right hilar region representing focal consolidation, continue Zosyn. WBC down change to po antibiotics - augmentin 500 mg po tid Hypoxia: Not on Home O2, O2 sat 89% on RA, currently 94% on 3L NC, continue w/ O2 as needed. Hypertension- better readings S/P CVA history with encephalopathy Seizure Disorder: Stable. H/o ICH and CVA w/ residual hemiparesis, unchanged. Resume home medications. speech therapy or swallowing and cognitive evaluation. PT consult DM: Sliding scale w/ Accu-Cheks. DVT Prophylaxis: SCD/Teds, no anticoagulation w/ h/o ICH Vascular dementia- Acute agitation- on multiple meds with underlying CVA on multiple meds- Lexapro, Seroquel psychiatry ff Geodon IM prn for agitation Problem Qualifiers (1) Sepsis: Qualified Code: A41.9 - Sepsis, due to unspecified organism Jess Austin MD Jul 10, 2016 16:26
[2016-07-10 19:45] VITALS: BP 123/70; PULSE 79; RESP 18; TEMP 99.6; O2SAT 91
[2016-07-10] MEDS: AMOXICILLIN/CLAVULANATE K 500 MG TAB PO SCH (23:35)
[2016-07-10 23:45] VITALS: BP 115/68; PULSE 79; RESP 18; TEMP 98; O2SAT 92
[2016-07-11 05:08] VITALS: BP 101/65; PULSE 79; RESP 16; TEMP 99.3; O2SAT 91
[2016-07-11] MEDS: INSULIN ASPART SUPPLEMENTAL SCALE SQ SCH ×2 (06:28→11:00)
[2016-07-11] MEDS: AMOXICILLIN/CLAVULANATE K 500 MG TAB PO SCH ×2 (06:28→12:07)
[2016-07-11] MEDS: SODIUM CHLORIDE 0.9% FLUSH 5 ML FLUSH FLUSH SCH (07:57)
[2016-07-11] MEDS: guaiFENesin E.R. 600 MG TAB PO SCH (07:58)
[2016-07-11] MEDS: levETIRAcetam 500 MG TAB PO SCH (07:58)
[2016-07-11] MEDS: ESCITALOPRAM OXALATE 20 MG TAB PO SCH (07:58)
[2016-07-11] MEDS: DIVALPROEX SODIUM SPRINKLES 125 MG CAP PO SCH (07:58)
[2016-07-11] MEDS: MULTIVITAMIN TAB PO SCH (07:58)
[2016-07-11] MEDS: GABAPENTIN 300 MG CAP PO SCH ×2 (07:58→12:07)
[2016-07-11] MEDS: QUEtiapine FUMARATE 100 MG TAB PO SCH ×2 (07:58→12:07)
[2016-07-11] MEDS: DOCUSATE SODIUM 50 MG/SENNA 8.6 MG TAB PO SCH (07:58)
[2016-07-11 08:00] VITALS: BP 105/69; PULSE 79; RESP 20; TEMP 99.5; O2SAT 92
--- NOTE | 2016-07-11 10:19 | HHI.PR ---
Subjective Remarks ate 100% no complains ate by himself- Objective Vitals Vital Signs Date Time Temp Pulse Resp B/P Pulse Ox O2 Delivery O2 Flow Rate FiO2 07/11/16 08:00 99.5 79 20 105/69 92 07/11/16 05:08 99.3 79 16 101/65 91 07/10/16 23:45 98.0 79 18 115/68 92 07/10/16 19:45 99.6 79 18 123/70 91 07/10/16 16:00 98.5 70 20 150/85 91 I/O 07/10/16 07/10/16 07/10/16 07/11/16 07/11/16 07/11/16 07:00 15:00 23:00 07:00 15:00 23:00 Intake Total 200 ml 480 ml 200 ml 360 ml Output Total 450 ml 400 ml 1200 ml 300 ml Balance -250 ml 80 ml -1000 ml 60 ml Intake Oral 200 ml 480 ml 200 ml 360 ml Output Urine Total 450 ml 400 ml 1200 ml 300 ml # Bowel Movements 0 0 Result Diagram: 07/07/16 0453 07/10/16 0811 Imaging Last Impressions Chest X-Ray 07/06/16 1832 Signed Impressions: Service Date/Time: June 18:43 - CONCLUSION: 1. Diffuse increased interstitial markings likely representing underlying edema. 2. Increased density at the right hilar region likely representing some focal consolidation. Baljit De Oliveira MD Objective Remarks awake and alert, oriented to person, speech soft, pleasantly confused no nuchal rigidity lungs no rales regular rhythm abdomen soft, nontender condom catheter in place extremities moves all spontaneously no purposeful movement A/P Problem List: (1) Sepsis ICD Code: A41.9 Status: Acute (2) PNA (pneumonia) ICD Code: J18.9 Status: Acute (3) Hypoxia ICD Code: R09.02 Status: Acute (4) Seizure disorder ICD Code: G40.909 Status: Acute (5) DM (diabetes mellitus) ICD Code: E11.9 Status: Acute Assessment and Plan 56 [facility] Sepsis: Temp 100.3, HR 92, WBC 17.4, Lactic Acid 2.3. S/p Blood/Sputum Cultures, IV Zithro/Zosyn. Follow up cultures, PNA: CXR w/ diffuse increased interstitial markings likely representing edema and increased density right hilar region representing focal consolidation, continue Zosyn. WBC down change to po antibiotics - augmentin 500 mg po tid Hypoxia: doing very well on , on 2L NC, continue w/ O2 2 LNC. continue Hypertension- better readings S/P CVA history with encephalopathy Seizure Disorder: Stable. H/o ICH and CVA w/ residual hemiparesis, unchanged. Resume home medications. speech therapy or swallowing and cognitive evaluation. PT consult DM: Sliding scale w/ Accu-Cheks. DVT Prophylaxis: SCD/Teds, no anticoagulation w/ h/o ICH Vascular dementia- Acute agitation- on multiple meds with underlying CVA on multiple meds- Lexapro, Seroquel psychiatry ff Geodon IM prn for agitation off restraint x 48 hours- very pleasant DC to SNF today Problem Qualifiers (1) Sepsis: Qualified Code: A41.9 - Sepsis, due to unspecified organism Jess Austin MD Jul 11, 2016 10:19 Jess Austin MD Jul 11, 2016 10:19
[2016-07-11] MEDS ORDERED: AUGM500T7 PO (10:25)
[2016-07-11] MEDS ORDERED: OXYGENTANK NAS.CANULA (10:28)
--- NOTE | 2016-07-11 10:32 | HHI.DS ---
Discharge Summary Admission Date Jul 06, 2016 at 20:27 Discharge Date: Jul 11, 2016 Admitting Diagnosis Sepsis/Pneumonia/Hypoxia (1) Sepsis ICD Code: A41.9 Diagnosis: Principal (2) PNA (pneumonia) ICD Code: J18.9 Diagnosis: Principal (3) Hypoxia ICD Code: R09.02 (4) Seizure disorder ICD Code: G40.909 Diagnosis: Secondary (5) DM (diabetes mellitus) ICD Code: E11.9 Diagnosis: Secondary Procedures none Brief History - From Admission This is a 56-year-old male with PMH of Anxiety, COPD, Hepatitis C, Cirrhosis, Seizure Disorder, h/o ICH and CVA w/ Residual Hemiparesis who was sent to the ER from SNF secondary to PNA and Hypoxia. Per records, outpatient X-ray from 04/06 showing RLL infiltrate, today w/ hypoxia O2 sat 90% on RA and temp 101. Pt unable to provide history. On arrival, BP 103/65, HR 92, O2 sat 89% on RA, Temp 100.3. WBC 17.4. Platelets 144, no previous labs for comparison. Chemistry essentially unremarkable. BS 203. Lactic Acid 2.3, repeat 2.3. CXR with diffuse interstitial markings likely representing edema, increased density right hilar region representing focal consolidation. S/p Sputum/Blood Cultures , Zosyn/Zithro in ER. CBC/BMP: 07/07/16 0453 07/10/16 0811 Significant Findings Laboratory Tests Test 07/10/16 08:11 Chloride Level 109 MEQ/L (98-107) Calcium Level 8.2 MG/DL (8.5-10.1) Imaging Last Impressions Chest X-Ray 07/06/16 1832 Signed Impressions: Service Date/Time: June 18:43 - CONCLUSION: 1. Diffuse increased interstitial markings likely representing underlying edema. 2. Increased density at the right hilar region likely representing some focal consolidation. Baljit De Oliveira MD PE at Discharge awake and alert, oriented to person, speech soft, pleasantly confused no nuchal rigidity lungs no rales regular rhythm abdomen soft, nontender condom catheter in place extremities moves all spontaneously no purposeful movement Pt update on day of discharge awake and alert, pleasant and cooperative Hospital Course 56 years old male from a [facility]way Sepsis: Temp 100.3, HR 92, WBC 17.4, Lactic Acid 2.3. S/p Blood/Sputum Cultures, IV Zithro/Zosyn. Follow up cultures, PNA: CXR w/ diffuse increased interstitial markings likely representing edema and increased density right hilar region representing focal consolidation, continue Zosyn. WBC down change to po antibiotics - augmentin 500 mg po tid Hypoxia: doing very well on , on 2L NC, continue w/ O2 2 LNC. continue Hypertension- better readings S/P CVA history with encephalopathy Seizure Disorder: Stable. H/o ICH and CVA w/ residual hemiparesis, unchanged. Resume home medications. speech therapy or swallowing and cognitive evaluation. PT consult DM: Sliding scale w/ Accu-Cheks. good readings no meds. DVT Prophylaxis: SCD/Teds, no anticoagulation w/ h/o ICH Vascular dementia- Acute agitation- on multiple meds with underlying CVA on multiple meds- Lexapro, Seroquel psychiatry ff off restraint x 48 hours- very pleasant DC to SNF today Pt Condition on Discharge: Stable Discharge Disposition: Discharge to SNF Discharge Time: <= 30 minutes Discharge Instructions DIET: Follow Instructions for: As Tolerated, No Restrictions Speech Therapy-Diet Recommends: Mechanical Soft, Chopped Meat w/Gravy Activities you can perform: Weight Bearing as Alexandrea Activities to Avoid: Prolonged Standing, Strenuous Activity Follow up Referrals: PCP Follow-up - Next Day with ABI Tejeda MD New Orders: X-RAY CHEST PA & LAT - 07/17/16 New Medications: Oxygen tank (Oxygen tank) 1 Ea Tank 2 LITER MAT.CANULA CONTINUOUS Oxygen Concentrator Portable Gaseous 2 L/min via Nasal Cannula Continuous For 99 months HYPOXEMIA PREVENTION #2 CYLINDER Amoxicillin-Clavulanate (Augmentin) 500-125 mg Tab 500 MG PO Q8HR Infection Days 5 TAB Continued Medications: Clonazepam (Clonazepam) 0.5 Mg Tab 0.5 MG PO BID PRN ANXIETY #60 Ref 0 TAB Divalproex Sprinkles (Depakote Sprinkles) 125 mg Cap 250 MG PO BID Control Seizures #60 Ref 0 CAP Escitalopram (Escitalopram) 20 Mg Tab 20 MG PO DAILY #30 Ref 0 TAB Gabapentin (Gabapentin) 300 Mg Cap 300 MG PO TID #0 Ref 0 CAP Hydrocodone-Acetaminophen ([place]) 10-325 Mg Tab 1 TAB PO Q6H PAIN Ref 0 TAB Ipratropium-Albuterol Neb (Duoneb) 0.5-2.5 Mg/3 Ml Neb 1 NEBULE INH Q4HR NEB PRN SOB/WHEEZING #120 Ref 0 NEBULE Levetiracetam (Keppra) 500 Mg Tab 500 MG PO BID Control Seizures #0 Ref 0 TAB Multiple Vitamin (Multi Vitamin) 1 Tab Tab 1 TAB PO DAILY TAB Quetiapine (Seroquel) 100 Mg Tab 100 MG PO TID #30 Ref 0 TAB Sennosides-Docusate Sodium (Senna-S 8.6-50 mg) 1 Tab Tab 1 TAB PO BID Discontinued Medications: Divalproex Sprinkles (Depakote Sprinkles) 125 mg Cap 3 TAB PO DAILY Control Seizures #60 Ref 0 CAP Lorazepam (Ativan) 1 Mg Tab 1 MG PO Q6H PRN ANXIETY AND/OR AGITATION Ref 0 TAB Prednisone (Prednisone) 10 Mg Tab 10 MG PO DAILY Ref 0 TAB Jess Austin MD Jul 11, 2016 10:32
[2016-07-11 11:51] VITALS: O2SAT 94
[2016-07-11 11:55] VITALS: BP 99/63; PULSE 87; RESP 20; TEMP 98.3; O2SAT 93
== END 2016-07-11 12:34 | DRG 871 ==
LOC: NEPE 17:40 → NEDA 20:27 → NEDH 07-07 00:36 → N04B 07-07 15:23
PROVIDERS: ADMIT Internal Medicine; ATTEND Internal Medicine
DX: A41.9 Sepsis, unspecified organism (principal); J69.0 Pneumonitis due to inhalation of food and vomit; K74.60 Unspecified cirrhosis of liver; F05 Delirium due to known physiological condition; I69.359 Hemiplegia and hemiparesis following cerebral infarction affecting unspecified side; F01.50 Vascular dementia, unspecified severity, without behavioral disturbance, psychotic disturbance, mood disturbance, and anxiety; J44.9 Chronic obstructive pulmonary disease, unspecified; B19.20 Unspecified viral hepatitis C without hepatic coma; I10 Essential (primary) hypertension; G40.909 Epilepsy, unspecified, not intractable, without status epilepticus; F41.9 Anxiety disorder, unspecified; R09.02 Hypoxemia; E11.9 Type 2 diabetes mellitus without complications; Z78.1 Physical restraint status; Z87.01 Personal history of pneumonia (recurrent)
CPT/HCPCS: 71010; 80048; 80053; 80202; 81001; 82948; 83605; 83880; 85025; 85610; 85730; 87040; 87070; 87205; 87804; 93005; 94640; 94664; J0456; J1815; J1940; J2543; J3370; J3486; J7030; J7040; J7050